=== PATIENT | female | born 2000 | race African-American/Black ===

== ENCOUNTER → 2018-01-25 | Outpatient (CLI) | payer OTHER ==
--- NOTE | 2018-01-25 14:24 | RAD ---
Examination: Right breast ultrasound History: 2 right breast lumps and pain Comparison/Correlation: None Findings: Ultrasound imaging of the right breast was performed at the 12:00 region and 3:00 region where palpable abnormalities are reported. At the right breast 12:00 region 4 cm from the nipple, there is a 1.8 cm x 1.4 cm x 1.2 cm, hypoechoic well-circumscribed mass with flow evident within it on color Doppler imaging. At the right breast 3:00 region, there is a 1.4 cm x 1.5 cm x 0.7 cm tall hypoechoic well-circumscribed gently lobulated mass. Flow is evident within it on color Doppler imaging. The right axilla is normal. Impression: BI-RADS Category 3-probably benign. There are 2 masses present with characteristics of fibroadenoma or tubular adenoma. No suspicious features. Six-month follow-up ultrasound exam to assess stability is recommended.
== END | disposition home or self-care (01) ==
LOC: US 12:26
DX: N63.12 Unspecified lump in the right breast, upper inner quadrant (principal); Z20.2 Contact with and (suspected) exposure to infections with a predominantly sexual mode of transmission
CPT/HCPCS: 36415; 76641; 86592; 86703; 86706; 87491; 87591

== ENCOUNTER 2019-02-25 10:52 | Emergency (ER) | payer OTHER ==
[~2019-02-25] VITALS: Ht 180.3 cm; Wt 61.2 kg
[2019-02-25 12:20] VITALS: BP 124/67
[2019-02-25] MEDS ORDERED: PENI500T PO (12:37)
--- NOTE | 2019-02-25 12:37 | PHYS DOC ---
Past Medical History Past Medical History: No Pertinent History Past Surgical History: No Surgical History Alcohol Use: None Drug Use: None Adult General Chief Complaint Chief Complaint: SORE THROAT HPI HPI Patient is a 18-year-old female who presents with complaint of sore throat and low-grade fever at home. Patient states symptoms started about 3 days ago and is progressively getting worse. She states that it is very painful to swallow. She states that she has seen some pus on her tonsils. She denies any vomiting or diarrhea. She does admit some body aches and chills.[] Review of Systems Review of Systems Constitutional: Admits to low-grade fever and chills [] HENT: Positive sore throat [] Respiratory: Denies cough or shortness of breath [] Cardiovascular: No additional information not addressed in HPI [] Integument: Denies rash or skin lesions [] Neurologic: Denies headache, focal weakness or sensory changes [] Allergies Allergies Allergies Coded Allergies Type Severity Reaction Last Updated Verified No Known Drug Allergies 02/25/19 No Physical Exam Physical Exam Constitutional: Well developed, well nourished, no acute distress, non-toxic appearance. [] HENT: Normocephalic, atraumatic, bilateral external ears normal, there is tonsillar swelling and exudates noted. [] Neck: Normal range of motion, no tenderness, supple, with anterior cervical lymphadenopathy. [] Cardiovascular:Heart rate regular rhythm, no murmur [] Lungs & Thorax: Bilateral breath sounds clear to auscultation [] Skin: Warm, dry, no erythema, no rash. [] Current Patient Data Vital Signs Vital Signs Date Time Temp Pulse Resp B/P (MAP) Pulse Ox O2 Delivery O2 Flow Rate FiO2 02/25/19 12:20 99.9 104 16 124/67 (86) 98 Room Air 99.9 EKG EKG [] Radiology/Procedures Radiology/Procedures [] Course & Med Decision Making Course & Med Decision Making Pertinent Labs and Imaging studies reviewed. (See chart for details) [] Dragon Disclaimer Dragon Disclaimer This electronic medical record was generated, in whole or in part, using a voice recognition dictation system. Departure Departure Impression: Primary Impression: Strep throat Disposition: 01 HOME, SELF-CARE Condition: STABLE Referrals: MAKAYLA CRAFT MD (PCP) Patient Instructions: Strep Throat Scripts Penicillin V Potassium (PENICILLIN V POTASSIUM) 500 Mg Tablet 2 TAB PO BID for 10 Days, #40 TAB Prov: LINNETTE DARBY Jr., DO 02/25/19 LINNETTE DARBY Jr., DO Feb 25, 2019 12:37
== END 2019-02-25 12:35 | disposition home or self-care (01) ==
LOC: ER 10:52
DX: J02.0 Streptococcal pharyngitis (principal); B95.5 Unspecified streptococcus as the cause of diseases classified elsewhere
CPT/HCPCS: 99283

== ENCOUNTER 2019-12-25 16:42 | Emergency (ER) | payer OTHER ==
[~2019-12-25] VITALS: Ht 180.3 cm; Wt 61.3 kg
[~2019-12-25 16:42] MED LIST: PENI500T PO
[2019-12-25 18:43] LABS: BILIRUBIN,URINE NEGATIVE (NEG); CLARITY,URINE CLEAR; COLOR,URINE YELLOW; NITRITE,URINE NEGATIVE (NEG); PH,URINE 6.5 (<5.0-8.0); PROTEIN,URINE NEGATIVE (NEG-TRACE)
[2019-12-25] MEDS ORDERED: ORPHENADRINE CITRATE 60 MG/2 ML VIAL. IM ONE (19:00)
[2019-12-25] MEDS ORDERED: KETOROLAC 60 MG/2 ML VIAL. IM ONE (19:00)
[2019-12-25 19:20] LABS: SQUAMOUS EPITHELIAL CELL,UR FEW /LPF
[2019-12-25 19:21] LABS: BACTERIA,URINE 0 /HPF (0-FEW); RBC,URINE 0 /HPF (0-2)
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
[2019-12-25] MEDS ORDERED: NAPR-514 PO (19:58)
[2019-12-25] MEDS ORDERED: CYCL10TA2 PO (19:58)
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
[2019-12-25 20:29] VITALS: BP 122/80
== END 2019-12-25 20:29 | disposition home or self-care (01) ==
LOC: ER 16:42
DX: M54.6 Pain in thoracic spine (principal); M54.41 Lumbago with sciatica, right side; M54.42 Lumbago with sciatica, left side
CPT/HCPCS: 72072; 72100; 81001; 81025; 96372; 99284; J1885; J2360

== ENCOUNTER 2020-03-07 13:09 | Emergency (ER) | payer OTHER ==
[~2020-03-07] VITALS: Ht 180.3 cm; Wt 61.3 kg
[~2020-03-07 13:09] MED LIST changes: +CYCL10TA2 PO; +NAPR-514 PO
[2020-03-07 13:22] VITALS: BP 121/72
[2020-03-07] MEDS ORDERED: METH-38 PO (13:52)
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
[2020-03-07] MEDS ORDERED: ORPHENADRINE CITRATE 60 MG/2 ML VIAL. IM ONE (14:00)
[2020-03-07] MEDS ORDERED: KETOROLAC 60 MG/2 ML VIAL. IM ONE (14:00)
[2020-03-07 14:05] LABS: BILIRUBIN,URINE NEGATIVE (NEG); CLARITY,URINE CLEAR; COLOR,URINE YELLOW; NITRITE,URINE NEGATIVE (NEG); PH,URINE 7.5 (<5.0-8.0); PROTEIN,URINE NEGATIVE (NEG-TRACE)
[2020-03-07 14:24] LABS: BACTERIA,URINE 0 /HPF (0-FEW); RBC,URINE 0 /HPF (0-2); WBC,URINE 0 /HPF (0-4)
== END 2020-03-07 14:08 | disposition home or self-care (01) ==
LOC: ER 13:09
DX: G89.29 Other chronic pain (principal); M54.6 Pain in thoracic spine; R25.2 Cramp and spasm
CPT/HCPCS: 81001; 81025; 96372; 99284; J1885; J2360

== ENCOUNTER → 2021-01-14 | Outpatient (CLI) | payer OTHER ==
[~2021-01-14] MED LIST changes: +CYCL10TA19 PO; -CYCL10TA2 PO; +METH-38 PO
== END ==
LOC: SPEC 13:01
PROVIDERS: ATTEND Family Medicine
DX: Z30.41 Encounter for surveillance of contraceptive pills (principal)
CPT/HCPCS: 81025; 88175